=== PATIENT | female | born 1940 | race Two or more races ===

== ENCOUNTER 2017-05-17 12:24 | Inpatient (IN) | payer OTHER ==
[~2017-05-17] VITALS: Ht 165.1 cm; Wt 55.3 kg
[~2017-05-17 12:24] MED LIST: CLARITIN10 MG/TAB PO; FOLIC ACID0.4 MG PO; FOSAMAX70 MG PO; FUROSEMIDE40 MG PO; NORFLEX30 MG/ML IJ; PHENERGAN25 MG PO; PRILOSEC OTC20 MG PO; SINGULAIR10 MG PO
== END 2017-06-01 12:37 | disposition home or self-care (01) | DRG 872 ==
LOC: ER 12:24 → MEDJ 19:21 → SEC-K 19:21 → MEDJ 05-18 08:56
PROC: 4A033R1 Measurement of Arterial Saturation, Peripheral, Percutaneous Approach (ICD-10-PCS; 2017-05-17)
PROC: B020ZZZ Computerized Tomography (CT Scan) of Brain (ICD-10-PCS; 2017-05-17)
PROC: B030ZZZ Magnetic Resonance Imaging (MRI) of Brain (ICD-10-PCS; 2017-05-17)
PROC: 05HP33Z Insertion of Infusion Device into Right External Jugular Vein, Percutaneous Approach (ICD-10-PCS; principal; 2017-05-26)
PROC: B54MZZZ Ultrasonography of Right Upper Extremity Veins (ICD-10-PCS; 2017-05-28)
PROC: B345ZZZ Ultrasonography of Bilateral Common Carotid Arteries (ICD-10-PCS; 2017-05-28)
PROC: B348ZZZ Ultrasonography of Bilateral Internal Carotid Arteries (ICD-10-PCS; 2017-05-28)
DX: A41.9 Sepsis, unspecified organism (principal); N10 Acute pyelonephritis; K52.89 Other specified noninfective gastroenteritis and colitis; R41.82 Altered mental status, unspecified; B96.20 Unspecified Escherichia coli [E. coli] as the cause of diseases classified elsewhere; R07.89 Other chest pain
CPT/HCPCS: 70551

== ENCOUNTER 2018-01-18 10:52 | Outpatient (CLI) | payer OTHER | END 2018-01-18 11:00 | disposition home or self-care (01) | LOC: RAD 501 10:52 → SONOGRAMA 10:52 | DX: M75.101 Unspecified rotator cuff tear or rupture of right shoulder, not specified as traumatic (principal) ==

== ENCOUNTER → 2018-02-06 | Outpatient (CLI) | payer OTHER | END | disposition home or self-care (01) | LOC: NUCLEAR 09:15 | DX: I87.2 Venous insufficiency (chronic) (peripheral) (principal) ==

== ENCOUNTER 2018-07-10 05:55 | Day surgery (SDC) | payer OTHER | END 2018-07-10 17:00 | disposition home or self-care (01) | LOC: CIR.AMB 05:55 | DX: Z45.2 Encounter for adjustment and management of vascular access device (principal) | CPT/HCPCS: 36561; C1751 ==